=== PATIENT | male | born 1990 | race Caucasian/White ===

== ENCOUNTER 2018-09-25 14:38 | Emergency (ER) | payer SELFPAY | END 2018-09-25 15:43 | disposition home or self-care (01) | LOC: SCSER 14:38 | DX: J10.1 Influenza due to other identified influenza virus with other respiratory manifestations (principal); Z87.442 Personal history of urinary calculi | CPT/HCPCS: 87804; 99283 ==

== ENCOUNTER 2019-06-24 11:40 | Emergency (ER) | payer SELFPAY ==
--- NOTE | 2019-06-24 13:14 | CT ---
CT BRAIN WITHOUT CONTRAST: Date: 06/24/19 HISTORY: Headache. Dizziness. Hypertension. FINDINGS: Comparison made with exam of 12/04/14. No evidence of acute infarct, hemorrhage, midline shift, or abnormal extra-axial fluid collections ar e seen. The ventricular size is normal and the basilar cisterns are patent. The bony calvarium is int act. The visualized paranasal sinuses are well aerated. IMPRESSION: No CT evidence of acute intracranial process. POS: OFF
[2019-06-24] MEDS ORDERED: cloNIDine 0.1 MG TAB ONE (13:15)
== END 2019-06-24 14:00 | disposition home or self-care (01) ==
LOC: SCSER 11:40
DX: I10 Essential (primary) hypertension (principal); Z87.442 Personal history of urinary calculi
CPT/HCPCS: 70450

== ENCOUNTER 2019-09-08 14:51 | Emergency (ER) | payer SELFPAY ==
[2019-09-08 15:17] LABS: #Lymphocytes 1.3 thou/uL (1.20-3.40); #Monocytes 0.7 thou/uL (0.11-0.59); #Neutrophils 10.5 thou/uL (1.40-6.50); %Basophils 0.1 % (0.0-1.0); %Eosinophils 0.2 % (0.0-10.0); %Lymphocytes 10.6 % (21.0-51.0); %Monocytes 5.6 % (0.0-10.0); %Neutrophils 83.5 % (42.0-75.0); Hemoglobin 15.7 g/dL (14.0-18.0); Mean Corpuscular HGB CONC 33.4 g/dL (32.0-36.0); Mean Corpuscular Hemoglobin 27.1 pg (27.0-31.0); Mean Corpuscular Volume 80.9 fL (78.0-98.0); Mean Platelet Volume 6.5 fL (7.4-10.4); Platelet Count 306 thou/uL (130-400); RBC Distribution Width 14.4 % (11.5-14.5); Red Blood Cell (RBC) Count 5.79 mill/uL (4.70-6.10); White Blood Cell (WBC) Count 12.6 thou/uL (4.8-10.8)
[2019-09-08 15:39] LABS: ALT (SGPT) 37 U/L (8-55); AST (SGOT) 22 U/L (5-34); Albumin 4.1 g/dL (3.5-5.0); Alkaline Phosphatase 65 U/L (40-110); Anion Gap 16 mmol/L (10-20); BUN (Urea Nitrogen) 17 mg/dL (8.9-20.6); Bilirubin, Total 1.9 mg/dL (0.2-1.2); Calc. Creatinine Clearance 0 mL/min (70-130); Calcium 8.9 mg/dL (7.8-10.44); Carbon Dioxide 21 mmol/L (22-29); Chloride 106 mmol/L (98-107); Estimated GFR-MDRD Greater than 90; Globulin 3.2 g/dL (2.4-3.5); Glucose 97 mg/dL (70-105); Potassium 3.9 mmol/L (3.5-5.1); Protein, Total 7.3 g/dL (6.0-8.3); Sodium 139 mmol/L (136-145)
[2019-09-08 19:01] LABS: Bacteria/HPF None Seen HPF (None Seen); Bilirubin Negative (Negative); Blood, Urine Trace (Negative); Clarity Clear (Clear); Glucose, Urine (Dipstick) Normal (Negative); Leukocyte Negative Leu/uL (Negative); Mucous/LPF 1+ LPF (<2+); Nitrite Negative (Negative); Protein, Urine (Dipstick) 20 mg/dL (Neg-Trace); Squamous Epithelial 0-3 HPF (0-3); Urobilinogen Normal mg/dL (Less than 2); WBC/HPF 0-3 HPF (0-3)
[2019-09-08] MEDS ORDERED: Ondansetron PF 4 MG/2 ML Vial ONE (19:06)
[2019-09-08] MEDS ORDERED: Ketorolac Tromethamine 30 MG/ML VIAL ONE (19:06)
--- NOTE | 2019-09-08 20:19 | CT ---
CT OF ABDOMEN AND PELVIS 09/08/19 COMPARISON: 05/29/15 HISTORY: Left flank pain, left lower quadrant pain, fever and vomiting. TECHNIQUE: Axial CT imaging obtained at 5 mm intervals from the lung bases through the pubic symphysis with intr avenous contrast. Coronal and sagittal reformatted imaging obtained. FINDINGS: The imaged lung bases are unremarkable. No free intraperitoneal air or fluid. The hepatic parenchyma is diffusely hypodense, evidence of steatosis. Gallbladder, spleen, pancreas, and adrenal glands appear unremarkable. Left kidney is unremarkable. 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 Nonobstructing intrarenal calculi are noted on the left, including a 5 mm stone in the upper pole and an 8-9 mm stone in the lower pole. A small lower pole left renal cyst is noted as well. Limited assessment of the bowel without oral contrast media demonstrates diverticulosis of the distal descending colon with no evidence of diverticulitis. No evidence for bowel obstruction. Appendix anna ears grossly unremarkable. No lymphadenopathy is appreciated. There is a small sliding type hiatal he rnia. No acute osseous abnormality. IMPRESSION: No acute findings. Stable/incidental findings as detailed above. POS: VICKY
== END 2019-09-08 20:35 | disposition home or self-care (01) ==
LOC: ERS 14:51
DX: R10.32 Left lower quadrant pain (principal); I10 Essential (primary) hypertension; Z79.899 Other long term (current) drug therapy
CPT/HCPCS: 36415; 74177; 80053; 81003; 81015; 85025; 96361; 96374; 96375; J1885; J2405

== ENCOUNTER 2021-06-07 13:02 | Emergency (ER) | payer SELFPAY ==
[2021-06-08 23:07] LABS: SARS-CoV-2 PCR by NAA DETECTED (NotDetected)
== END 2021-06-07 14:15 | disposition home or self-care (01) ==
LOC: ERS 13:02
DX: U07.1 COVID-19 (principal); I10 Essential (primary) hypertension; Z87.442 Personal history of urinary calculi; Z79.899 Other long term (current) drug therapy
CPT/HCPCS: 99283; U0003; U0005

== ENCOUNTER 2022-04-04 14:34 | Emergency (ER) | payer SELFPAY ==
[2022-04-04] MEDS ORDERED: Ketorolac Tromethamine 30 MG/ML VIAL ONE (15:18)
== END 2022-04-04 16:11 | disposition home or self-care (01) ==
LOC: ERS 14:34
DX: S39.012A Strain of muscle, fascia and tendon of lower back, initial encounter (principal); I10 Essential (primary) hypertension; Z79.899 Other long term (current) drug therapy; X50.0XXA Overexertion from strenuous movement or load, initial encounter
CPT/HCPCS: 96372; 99283; J1885

== ENCOUNTER 2022-07-25 11:57 | Emergency (ER) | payer SELFPAY | END 2022-07-25 12:20 | disposition home or self-care (01) | LOC: ERS 11:57 | DX: H73.892 Other specified disorders of tympanic membrane, left ear (principal); J22 Unspecified acute lower respiratory infection; I10 Essential (primary) hypertension | CPT/HCPCS: 99283 ==

== ENCOUNTER 2022-09-22 13:38 | Emergency (ER) | payer SELFPAY ==
[2022-09-22] MEDS ORDERED: Diazepam 5 MG TAB ONE (16:49)
[2022-09-22] MEDS ORDERED: Ketorolac Tromethamine 30 MG/ML VIAL ONE (17:02)
== END 2022-09-22 17:56 | disposition home or self-care (01) ==
LOC: ERS 13:38
DX: M25.461 Effusion, right knee (principal); M54.50 Low back pain, unspecified; W10.9XXA Fall (on) (from) unspecified stairs and steps, initial encounter
CPT/HCPCS: 96372; J1885

== ENCOUNTER 2024-07-05 22:59 | Emergency (ER) | payer SELFPAY ==
[2024-07-05 23:25] LABS: #Basophils 0.06 10x3/uL (0.0-0.2); %Basophils 0.5 % (0.0-1.0); %Eosinophils 1.9 % (0.0-10.0); %Lymphocytes 25.6 % (21.0-51.0); %Monocytes 5.3 % (0.0-10.0); %Neutrophils 66.3 % (42.0-75.0); Hematocrit 46.6 % (42.0-52.0); Hemoglobin 14.3 g/dL (14.0-18.0); Mean Corpuscular HGB CONC 30.7 g/dL (32.0-36.0); Mean Corpuscular Hemoglobin 25.1 pg (27.0-31.0); Mean Corpuscular Volume 81.9 fL (78.0-98.0); Mean Platelet Volume 8.8 fL (7.4-10.4); Platelet Count 341 10x3/uL (130-400); RBC Distribution Width 15.4 % (11.5-14.5); Red Blood Cell (RBC) Count 5.69 mill/uL (4.70-6.10)
[2024-07-05 23:47] LABS: ALT (SGPT) 35 U/L (8-55); AST (SGOT) 30 U/L (5-34); Albumin 3.8 g/dL (3.5-5.0); Alkaline Phosphatase 80 U/L (40-110); Anion Gap 16 mmol/L (10-20); BUN (Urea Nitrogen) 14 mg/dL (8.9-20.6); Bilirubin, Total 0.8 mg/dL (0.2-1.2); Calc. Creatinine Clearance 0 mL/min (70-130); Calcium 9.7 mg/dL (7.8-10.44); Carbon Dioxide 23 mmol/L (22-29); Chloride 106 mmol/L (98-107); Estimated GFR 80; Glucose 147 mg/dL (70-105); Lipase 25 U/L (8-78); Potassium 3.9 mmol/L (3.5-5.1); Protein, Total 7.8 g/dL (6.0-8.3); Sodium 141 mmol/L (136-145)
[2024-07-06 00:14] LABS: Bilirubin Negative (Negative); Blood, Urine 3+ (Negative); CAUTI Indications for Culture Acute Hematuria; Clarity Turbid (Clear); Glucose, Urine (Dipstick) Normal (Negative); Ketone, Urine Negative (Negative); Leukocyte 500 Leu/uL (Negative); Nitrite Negative (Negative); Protein, Urine (Dipstick) 100 mg/dL (Neg-Trace); RBC/HPF Greater than 50 HPF (0-3); Squamous Epithelial 0-3 HPF (0-3); Urobilinogen Normal mg/dL (Less than 2); WBC/HPF Greater than 50 HPF (0-3); pH, Urine 6.5 (5.0-9.0)
[2024-07-06 00:18] LABS: Bacteria/HPF Rare-Few HPF (None Seen); Urine Culture Reflex Yes Yes
[2024-07-06] MEDS ORDERED: Sodium Chloride 0.9% 100 ML ONE ×2 (01:13→01:32)
[2024-07-06] MEDS ORDERED: CEFAZOLIN 2 GM VIAL ONE (01:13)
[2024-07-06] MEDS ORDERED: Ketorolac Tromethamine 30 MG (1 mL) VIAL ONE (01:29)
[2024-07-06] MEDS ORDERED: cefTRIAXone (ROCEPHIN) 2 GM VIAL ONE (01:30)
[2024-07-06] MEDS ORDERED: Tamsulosin HCl 0.4 MG CAP ONE (02:56)
== END 2024-07-06 03:40 | disposition home or self-care (01) ==
LOC: ERS 22:59
DX: N39.0 Urinary tract infection, site not specified (principal); N20.0 Calculus of kidney; I10 Essential (primary) hypertension
CPT/HCPCS: 36415; 74176; 80053; 81001; 82550; 83605; 83690; 85025; 87086; 96365; 96375; J0696; J1885